=== PATIENT | female | born 1980 | race African-American/Black ===

== ENCOUNTER 2024-08-22 12:44 | Outpatient (CLI) | payer BC | END 2024-08-22 12:45 | disposition home or self-care (01) | LOC: BICMAMMO 12:44 | DX: Z12.31 Encounter for screening mammogram for malignant neoplasm of breast (principal); N64.89 Other specified disorders of breast | CPT/HCPCS: 77063; 77067 ==

== ENCOUNTER 2024-09-07 08:42 | Outpatient (CLI) | payer BC | END 2024-09-07 08:43 | disposition home or self-care (01) | LOC: BICMAMMO 08:42 | DX: N64.89 Other specified disorders of breast (principal) | CPT/HCPCS: G0279 ==